=== PATIENT | female | born 1975 | race Caucasian/White ===

== ENCOUNTER → 2023-06-08 10:03 | Outpatient (REF) | payer OTHER, SELFPAY | LOC: WDC 10:03 | PROVIDERS: ATTENDING PHYSICIAN Nurse Practitioner Adult Health; FAMILY PHYSICIAN Family Medicine | DX: R92.2 Inconclusive mammogram (principal) | CPT/HCPCS: 76641 ==

== ENCOUNTER 2023-12-15 09:05 | Outpatient (RCR) | payer OTHER, SELFPAY | END 2023-12-15 23:59 | disposition home or self-care (01) | LOC: RPT 09:05 | PROVIDERS: ATTENDING PHYSICIAN Physician Assistant Surgical; FAMILY PHYSICIAN Family Medicine | DX: M45.6 Ankylosing spondylitis lumbar region (principal); M54.16 Radiculopathy, lumbar region; M43.16 Spondylolisthesis, lumbar region | CPT/HCPCS: 97110; 97162 ==

== ENCOUNTER → 2024-03-01 20:37 | Outpatient (REF) | payer OTHER, SELFPAY | LOC: MRI 3T 20:37 | PROVIDERS: ATTENDING PHYSICIAN Nurse Practitioner; FAMILY PHYSICIAN Family Medicine | DX: R56.9 Unspecified convulsions (principal) | CPT/HCPCS: 70551 ==

== ENCOUNTER → 2024-03-16 08:58 | Outpatient (REF) | payer OTHER, SELFPAY | LOC: WDC 08:58 | PROVIDERS: ATTENDING PHYSICIAN Nurse Practitioner Adult Health | DX: N63.20 Unspecified lump in the left breast, unspecified quadrant (principal); N63.31 Unspecified lump in axillary tail of the right breast | CPT/HCPCS: 76642; 77062; 77066 ==

== ENCOUNTER → 2024-04-19 14:51 | Outpatient (REF) | payer OTHER, SELFPAY | LOC: HWRAD 14:51 | PROVIDERS: ATTENDING PHYSICIAN Nurse Practitioner Family; FAMILY PHYSICIAN Nurse Practitioner Family; REFERRING PHYSICIAN Neurological Surgery | DX: Z98.1 Arthrodesis status (principal) | CPT/HCPCS: 72131 ==

== ENCOUNTER → 2024-05-19 10:52 | Outpatient (REF) | payer OTHER, SELFPAY | LOC: PAVMRI 10:52 | PROVIDERS: ATTENDING PHYSICIAN Nurse Practitioner | DX: D18.00 Hemangioma unspecified site (principal) | CPT/HCPCS: 70543; 70553; A9575 ==

== ENCOUNTER → 2024-06-07 09:52 | Outpatient (REF) | payer SELFPAY | LOC: HWRAD 09:52 | PROVIDERS: ATTENDING PHYSICIAN Nurse Practitioner Family | DX: E78.2 Mixed hyperlipidemia (principal) | CPT/HCPCS: 75571 ==

== ENCOUNTER → 2024-07-11 13:19 | Outpatient (REF) | payer OTHER, SELFPAY | LOC: HWRAD 13:19 | PROVIDERS: ATTENDING PHYSICIAN Nurse Practitioner Family; FAMILY PHYSICIAN Family Medicine; REFERRING PHYSICIAN Neurological Surgery | DX: Z98.1 Arthrodesis status (principal) | CPT/HCPCS: 72100 ==

== ENCOUNTER 2024-08-28 10:04 | Outpatient (RCR) | payer OTHER, SELFPAY | END 2024-08-28 23:59 | disposition home or self-care (01) | LOC: RPT 10:04 | PROVIDERS: ATTENDING PHYSICIAN Neurological Surgery; FAMILY PHYSICIAN Family Medicine | DX: Z47.89 Encounter for other orthopedic aftercare (principal); M54.16 Radiculopathy, lumbar region; M43.16 Spondylolisthesis, lumbar region; Z73.6 Limitation of activities due to disability; M45.9 Ankylosing spondylitis of unspecified sites in spine; M62.81 Muscle weakness (generalized); Z98.1 Arthrodesis status | CPT/HCPCS: 97110; 97162 ==

== ENCOUNTER 2024-09-22 06:49 | Outpatient (RCR) | payer OTHER, SELFPAY | END 2024-09-22 10:57 | disposition home or self-care (01) | LOC: RPT 06:49 | PROVIDERS: ATTENDING PHYSICIAN Neurological Surgery; FAMILY PHYSICIAN Family Medicine | DX: Z47.89 Encounter for other orthopedic aftercare (principal); M54.16 Radiculopathy, lumbar region; M43.16 Spondylolisthesis, lumbar region; Z73.6 Limitation of activities due to disability; M45.9 Ankylosing spondylitis of unspecified sites in spine; M62.81 Muscle weakness (generalized); Z98.1 Arthrodesis status | CPT/HCPCS: 97110 ==

== ENCOUNTER → 2024-11-15 14:42 | Outpatient (REF) | payer OTHER, SELFPAY | LOC: WDC 14:42 | PROVIDERS: ATTENDING PHYSICIAN Nurse Practitioner Adult Health; FAMILY PHYSICIAN Nurse Practitioner Family | DX: R92.2 Inconclusive mammogram (principal) | CPT/HCPCS: 76641 ==

== ENCOUNTER → 2024-12-21 07:37 | Outpatient (REF) | payer OTHER, SELFPAY | LOC: PET 07:37 | PROVIDERS: ATTENDING PHYSICIAN Nurse Practitioner | DX: R56.9 Unspecified convulsions (principal) | CPT/HCPCS: 78608; A9552 ==

== ENCOUNTER → 2025-03-19 09:00 | Outpatient (REF) | payer OTHER, SELFPAY | LOC: HWWDC 09:00 | PROVIDERS: ATTENDING PHYSICIAN Nurse Practitioner Adult Health | DX: Z12.31 Encounter for screening mammogram for malignant neoplasm of breast (principal) | CPT/HCPCS: 77063; 77067 ==